=== PATIENT | female | born 1995 | race Caucasian/White ===

== ENCOUNTER 2025-09-27 06:49 | Outpatient (CLI) | payer MEDICAID, SELFPAY ==
[2025-09-27 06:55] VITALS: BMI 30.8
[2025-09-27 06:57] VITALS: BP 117/67; PULSE 82; RESP 18; TEMP 36.8
--- NOTE | 2025-09-27 07:14 | PC.NURSE ---
0658 THIS CLEAN OUT DRILLER HELPER WENT INTO ROOM AND GOT THE URINE AND TOLD THEM THAT WE WERE GOING TO RUN IT TO MAKE SURE SHE DOES NOT HAVE URINARY TRACT INFECTION AND THEN WE WOULD GO FROM THERE. THEY VOICED UNDERSTANDING. I CAME OUT AND SENT URINE DOWN AND BEFORE I COULD EVEN SIT DOWN HER LIGHT WENT OFF PATIENT PUT ARSON INVESTIGATOR LIGHT AND THIS CLEAN OUT DRILLER HELPER WENT IN AND SHE WAS HALF UNDRESSED AND JUST ALMOST IN A PANIC WANTING TO GO, I TRIED TO EXPLAIN TO THEM THE PROCESS AGAIN THAT WE WOULD JUST RUN HER URINE THAT I HAD PUT THE ORDER IN STAT AND THAT DOCTOR DOESN'T HAVE TO COME SEE HER THAT WE WOULD JUST CALL HER WITH RESULTS AND HOPEFULLY GET HER OUT WITHIN A HOUR OR SO. PATIENT'S BOYFRIEND SAID SHE WAS A HYPOCHONDRIACH AND SHE JUST SAID NO I JUST WANT TO GO TO MY DOCTOR IN [place] AND HE MADE ME COME HERE BECAUSE HE DIDN'T WANT TO DRIVE DOWN THERE. AGAIN TRIED TO GET HER TO SAY AND SHE WAS TAKING HER GOWN OFF AND SO THIS CLEAN OUT DRILLER HELPER TOOK OUT MONITORS AND TOLD HER I NEEDED HER TO SIGN AMA PAPER BEFORE SHE GOES, CAME BACK AND GOT PAPER AND LITERALLY MET HER AT THE TRIAGE DOOR FULLY DRESSED, SHE DID SIGN PAPER AND THEN SHE LEFT THE DEPARTMENT.
== END 2025-09-27 07:05 | disposition left against medical advice (07) ==
LOC: OPOB 06:53 → OBGYN 06:55
PROVIDERS: Visit Provider Family Medicine
DX: O26.899 Other specified pregnancy related conditions, unspecified trimester (principal); Z3A.00 Weeks of gestation of pregnancy not specified; R25.2 Cramp and spasm; R30.9 Painful micturition, unspecified
CPT/HCPCS: 59025; 99211